=== PATIENT | male | born 1975 | race Caucasian/White ===

== ENCOUNTER 2022-05-08 11:53 | Emergency (ER) | payer MEDICAID | END 2022-05-08 15:05 | disposition home or self-care (01) | LOC: JD.ED 11:53 | DX: R42 Dizziness and giddiness (principal); K21.9 Gastro-esophageal reflux disease without esophagitis; E03.9 Hypothyroidism, unspecified; Z91.040 Latex allergy status | CPT/HCPCS: 36415; 36600; 80053; 82803; 84484; 85025; 85379; 93005; 93010; 99284; 99285 ==